=== PATIENT | female | born 1945 | race Caucasian/White ===

== ENCOUNTER 2017-08-28 15:41 | Emergency (ER) | payer MEDICARE ==
[2017-08-28 16:05] VITALS: BP 132/59
--- NOTE | 2017-08-28 16:27 | UC ---
UC General HPI - History of Current Complaint Chief Complaint: UCGeneralIllness Stated Complaint: ACHY,DIZZINESS Time Seen by Provider: 08/28/17 16:16 - Allergy/Home Medications Allergies/Adverse Reactions: Allergies Allergy/AdvReac Type Severity Reaction Status Date / Time Ciprofloxacin [From Cipro] Allergy Rash Verified 08/28/17 16:07 environmental Allergy Runny Uncoded 08/28/17 16:07 nose, eyes Home Medications: Home Medications Lisinopril/HCTZ (NF) [Zestoretic (NF)] 1 tab PO DAILY 08/28/17 [ History Confirmed 08/28/17] Zolpidem TAB* [Ambien*] 10 mg PO BEDTIME PRN 08/28/17 [History Confirmed ] busPIRone TAB* [Buspar TAB*] 5 mg PO BID 08/28/17 [History Confirmed 08/28/17] glyBURIDE TAB* [Diabeta TAB*] 5 mg PO SEE INSTRUCTIONS 08/28/17 [History Confirmed 08/28/17] PMH/Surg Hx/FS Hx/Imm Hx Endocrine History: Diabetes, Hypothyroidism Cardiovascular History: Hypertension - Surgical History Surgical History: Yes Surgery Procedure, Year, and Place: hYsterectomy 1982, gall bladder, T&A - Family History Known Family History: Negative: Cardiac Disease - Social History Occupation: Retired Lives: With Family Alcohol Use: Rare Substance Use Type: None Smoking Status (MU): Former Smoker Review of Systems Constitutional: Chills, Fatigue Skin: Other - Redness over right great toe Is Patient Immunocompromised?: No All Other Systems Reviewed And Are Negative: Yes Physical Exam Triage Information Reviewed: Yes Appearance: Well-Appearing, Well-Nourished, Pain Distress - mild with palpation of the right toe Vital Signs: Initial Vital Signs Temp 98.2 F 08/28/17 15:58 Pulse 65 08/28/17 15:58 Resp 18 08/28/17 15:58 BP 132/59 08/28/17 15:58 Pulse Ox 100 08/28/17 15:58 Vital Signs Reviewed: Yes Eyes: Positive: Conjunctiva Clear ENT: Positive: Pharynx normal, TMs normal Neck exam: Normal Respiratory Exam: Normal Cardiovascular Exam: Normal Abdominal Exam: Normal Musculoskeletal: Positive: ROM Limited @ - right toe 1st IP joint Neurological Exam: Normal Psychological Exam: Normal Skin: Positive: Other - erythema with warmth over the right great toe centered over the IP joint. Course/Dx - Differential Dx - Multi-Symptom Differential Diagnoses: Metabolic Abnormality, Sepsis, Urinary Tract Infection Provider Diagnoses: Cellulitis right 1st toe Discharge - Discharge Plan Condition: Stable Disposition: HOME Prescriptions: Cephalexin CAP* [Keflex 500 CAP*] 500 mg PO QID #40 cap Patient Education Materials: Cellulitis (ED), Cephalexin (By mouth) Referrals: Tonia Lovell MD [Primary Care Provider] - Additional Instructions: Warm packs 3 to 4 times a day. Keep foot elevated.
== END 2017-08-28 16:39 | disposition home or self-care (01) ==
LOC: UCCORT 15:41
DX: L03.031 Cellulitis of right toe (principal); E11.9 Type 2 diabetes mellitus without complications; Z79.84 Long term (current) use of oral hypoglycemic drugs; E03.9 Hypothyroidism, unspecified; I10 Essential (primary) hypertension; Z90.49 Acquired absence of other specified parts of digestive tract; Z90.710 Acquired absence of both cervix and uterus; Z88.1 Allergy status to other antibiotic agents; Z87.891 Personal history of nicotine dependence
CPT/HCPCS: 93005; 99212; G0463